=== PATIENT | male | born 1940 | race Caucasian/White ===

== ENCOUNTER 2019-09-04 15:44 | Inpatient (IN) ==
[2019-09-04] MEDS ORDERED: Dextrose Gel 15 GM/37.5 ML TUBE PO PRN ×2 (19:21)
[2019-09-04] MEDS ORDERED: *HR* Dextrose 50 % in Water (Syg) 50 ML SYRINGE IVP PRN (19:21)
[2019-09-04] MEDS ORDERED: D5% in Water 1,000 ML IVC PRN (19:21)
[2019-09-04] MEDS ORDERED: NON-FORMULARY MEDICATION 1 EACH EACH (Omega-3/Dha/Epa/Fish Oil [Fish Oil 1,000 Mg Softgel] PO SCH (21:00)
[2019-09-04] MEDS ORDERED: Ipratropium/Albuterol Neb 3 ML IH PRN (21:15)
[2019-09-04] MEDS: Insulin DETEMIR 100 UNIT/ML per UNIT SQ SCH (21:52)
[2019-09-04] MEDS: Insulin LISPRO 300 UNITS/3 ML VIAL SQ SCH (21:53)
[2019-09-04] MEDS: Folic Acid 1 MG TABLET PO SCH (21:53)
[2019-09-04] MEDS: Apixaban 5 MG TABLET PO SCH (21:54)
[2019-09-04] MEDS: Magnesium Oxide 400 MG TABLET PO SCH (21:54)
[2019-09-04] MEDS: Ranolazine 500 MG TAB.ER.12H PO SCH (21:54)
[2019-09-04] MEDS: Budesonide/Formoterol 80/4.5 1 PUFF INH IH SCH (22:12)
[2019-09-05] MEDS: Insulin LISPRO 300 UNITS/3 ML VIAL SQ SCH ×4 (08:38→20:00)
[2019-09-05] MEDS: BuPROPion XL (24 HR) 150 MG TABLET PO SCH (08:40)
[2019-09-05] MEDS: Ranolazine 500 MG TAB.ER.12H PO SCH ×2 (08:40→20:01)
[2019-09-05] MEDS: Torsemide 20 MG TABLET PO SCH (08:40)
[2019-09-05] MEDS: Cholecalciferol (D-3) 1,000 UNIT (25MCG) TABLET PO SCH (08:41)
[2019-09-05] MEDS: Apixaban 5 MG TABLET PO SCH ×2 (08:41→20:02)
[2019-09-05] MEDS: Loratadine 10 MG TABLET PO SCH (08:41)
[2019-09-05] MEDS: Cyanocobalamin (B-12) 1,000 MCG TABLET PO SCH (08:41)
[2019-09-05] MEDS: Magnesium Oxide 400 MG TABLET PO SCH ×2 (08:41→20:01)
[2019-09-05] MEDS: Budesonide/Formoterol 80/4.5 1 PUFF INH IH SCH ×2 (10:10→22:18)
[2019-09-05] MEDS: Tiotropium 18 MCG inhalation IH SCH (10:10)
--- NOTE | 2019-09-05 12:30 | Internal Med History&Physical ---
Date of Encounter: 09/05/19 Time of Encounter: 11:55 Assessment and Plan (1) Pneumonia Current visit: No Status: Acute Blood culture 08/30/2019 showed Micrococcus luteus. Continue Augmentin through 09/09/2019. Lactobacillus will be added. Qualifiers: Pneumonia type: due to unspecified organism Laterality: right Lung location: upper lobe of lung Qualified Code(s): J18.1 - Lobar pneumonia, unspecified organism (2) CKD (chronic kidney disease) stage 3, GFR 30-59 ml/min Current visit: No Status: Chronic Monitor renal indices. Follow-up appointment with statistical clerk advertising as scheduled December 2019. (3) CAD (coronary artery disease), [place] coronary artery Current visit: No Status: Chronic Status post multiple stents. Anticipate additional PCI/stent intervention 09/15/2019 by [facility] cardiology. Continue Lipitor, Plavix, and Eliquis. Qualifiers: Associated angina: with other forms of angina Qualified Code(s): I25.118 - Atherosclerotic heart disease of [place] coronary artery with other forms of angina pectoris (4) Anemia Current visit: No Status: Chronic Anemia testing 08/23/2019 showed iron 31, transferrin saturation 12%, transferrin 192, ferritin 278, B12 631, and folate> 22.3. He states he received 4 parenteral iron treatments during recent [facility] stay. Monitor CBC. 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 Continue Eliquis. Qualifiers: Atrial fibrillation type: paroxysmal Qualified Code(s): I48.0 - Paroxysmal atrial fibrillation (6) Diabetes mellitus Current visit: No Status: Chronic Hemoglobin A1c 7.7% on 07/31/2019. Continue Lantus and Accu-Cheks with SSI. Qualifiers: Diabetes mellitus type: type 2 Diabetes mellitus payroll representative insulin use: with payroll representative use Diabetes mellitus complication status: with kidney complications Diabetes mellitus complication detail: with chronic kidney disease Chronic kidney disease stage: stage 3 (moderate) Qualified Code(s): E11.22 - Type 2 diabetes mellitus with diabetic chronic kidney disease; N18.3 - Chronic kidney disease, stage 3 (moderate); Z79.4 - [facility] (current) use of insulin (7) CHF (congestive heart failure) Current visit: No Status: Chronic Continue Plavix and Demadex. Qualifiers: Heart failure type: diastolic Heart failure chronicity: acute on chronic Qualified Code(s): I50.33 - Acute on chronic diastolic (congestive) heart failure Internal Medicine - H&P: HPI Chief complaint: Pneumonia Admitted From: Hospital to Hospital Transfer Plans for Post Hospital Care: Home History of present illness: Mr. Miller is a 79 year old male who was discharged to [facility] swing bed after a August 30 [facility] stay for pneumonia. He received IV antibiotics and stabilized. He was discharged on oral antibiotics for 5 days. He was ordered therapy for strengthening prior to returning to independent living at home. He smoked from age [age] up to 2 packs per day. He has a diagnosis COPD. He has had pneumonia in the past. He uses supplemental oxygen at home at bedtime and as needed during daytime. He denies evaluation for sleep apnea. Past Med Surg Social Fam HX - Past Medical History Medical history: arthritis, atrial fibrillation, cancer, CHF, COPD, coronary artery disease, diabetes, GERD, hyperlipidemia, hypertension Additional medical history: Melanoma removed from ear Psychiatric history: anxiety, depression - Past Surgical History Surgical History: pacemaker Additional surgical history: 8 cardiac stents. 3 hernia repairs. cancer right ear removal - Social History Smoking Status: Former smoker Smokeless Tobacco Status: No Alcohol use: none Drug use: none - Family History Mother Family Member Ethnicity: Non- Living Status: Hx Family Cardiac Disorders: Yes (Heart disease) Brother Family Member Ethnicity: Non- Living Status: Still Living Hx Family Cardiac Disorders: Yes Hx Family Cancer: Yes (Leukemia) Hx Family Endocrine Disorder: Yes (DM) Sister Family Member Ethnicity: Non- Living Status: Hx Family Cardiac Disorders: Yes (Heart disease) Hx Family Cancer: Yes (Melanoma) Father Family Member Ethnicity: Non- Living Status: Hx Family Cardiac Disorders: Yes (CVA) Hx Family Respiratory Disorders: No Hx Family Cancer: No Hx Family GI Disorders: No Hx Family Endocrine Disorder: Yes (DM) Hx Family Neuromuscular Disorders: No Hx Family Neurologic Disorders: Yes (stroke) Hx Family HEENT Disorders: No Hx Family Autoimmune Disorders: No Internal Medicine - H&P: Meds Atorvastatin Calcium [Lipitor] 20 mg PO 1700 09/04/15 [History] Bupropion HCl [Wellbutrin Xl] 300 mg PO DAILY 09/04/15 [History] Insulin Glargine,Hum.rec.anlog [Lantus Solostar] 65 unit SQ HS 09/04/15 [History] Folic Acid 1 mg PO HS 01/01/16 [History] Clopidogrel [Plavix] 75 mg PO DAILY #30 tablet 07/04/16 [Rx] [place]-3/Dha/Epa/Fish Oil [Fish Oil 1,000 mg Softgel] 1,000 mg PO TID 12/18/16 [History] Magnesium Oxide [Magnesium] 400 mg PO BID 04/30/17 [History] Ferrous Gluconate 324 mg PO DAILY 08/27/17 [History] Loratadine [Allergy Relief] 10 mg PO DAILY 04/29/18 [History] Pantoprazole Sodium 40 mg PO DAILY 04/29/18 [History] Tiotropium [Spiriva] 1 puff IH DAILY 04/29/18 [History] Cholecalciferol (Vitamin D3) [Vitamin D3] 2,000 unit PO DAILY 05/25/18 [History] Docusate [Colace] 100 mg PO DAILY 05/25/18 [History] Sertraline [Zoloft] 200 mg PO DAILY 05/25/18 [History] Tamsulosin [Flomax] 0.4 mg PO DAILY 11/04/18 [History] Cyanocobalamin (Vitamin B-12) [Vitamin B12] 1,000 mcg SL DAILY #30 tablet 01/26/19 [Rx] Fluticasone/Salmeterol [Advair 250-50 Diskus] 2 puff IH BID 05/31/19 [History] Insulin ASPART [Novolog Flexpen] 0 unit SQ TIDAC 05/31/19 [History] Apixaban [Eliquis] 5 mg PO BID tablet 06/04/19 [Rx] Ranolazine [Ranexa] 1,000 mg PO BID 06/05/19 [History] Torsemide [Demadex] 10 mg PO DAILY #30 tablet 06/08/19 [Rx] Potassium Chloride [K-Tab ER] 10 meq PO DAILY 08/30/19 [History] Ipratropium/Albuterol Neb [Duoneb] 3 ml IH Q6HR PRN #120 inh 10/11/19 [Rx] Amoxicillin/Clavulanate [Augmentin] 875 mg PO BIDWM #2 tablet 09/04/19 [Rx] Allergy/AdvReac Type Severity Reaction Status Date / Time codeine Allergy Difficulty Verified 04/04/19 14:29 Breathing Homatropine AdvReac Insomnia Verified 04/04/19 14:29 [From Homatropaire] hydrocodone AdvReac Insomnia Verified 04/04/19 14:29 All Systems PM: A 10-system review of systems was performed and is negative for pertinent findings except as documented above in the HPI. Review of systems: Gen.: He states his weight has been stable in the past year Cardiovascular: He has history of hypertension and known ASHD. Limited echocardiogram 05/30/2019 showed LVEF of 50-55%. The interventricular septum and posterior wall thickness measurements were 1.30 cm each. There was LAE at 4.40 cm. Echocardiogram 11/04/2018 showed LVEF of 30-35% with severe global LV systolic dysfunction and indeterminate diastolic function reported. E/A ratio was 4.2. There was mild mitral regurgitation, mild tricuspid regurgitation, and moderate pulmonary hypertension with estimated RVSP 58 mmHg. LHC 11/07/2018 showed LVEF of 25%. The LMCA was free of disease, LAD with 80% stenosis in mid LAD, 80% stenosis in mid AV circumflex, 80% stenosis in proximal first marginal, and 90% stenosis in proximal RCA. He reports a total of 8 stents had previously been placed. He denies DVT or pulmonary embolus. Respiratory: As per history of present illness GI: He has had cholecystectomy. He denies disorders of his liver or exocrine pancreas. : He has had kidney stones in the past. He was unaware he has chronic kidney disease stage III. He denies being told he has chronic kidney disease. Neurologic: He denies large distribution strokes or seizures. Endocrine: He was diagnosed with DM 2 approximately 2000. He has hyperlipidemia but denies thyroid disease Hematology/oncology: He denies internal malignancies. He had skin cancer removed from his right ear in the past. He has had anemia with history of iron deficiency and reports receiving parenteral iron therapy during his recent [facility] stay. He has been diagnosed with Matthews's esophagus. Psychiatric: He has a diagnosis of depression but denies anxiety or other mental health issues [place] skeletal: He has DJD but denies gout - Constitutional Vitals: Temp Pulse Resp BP Pulse Ox 98 F 81 15 121/66 92 09/05/19 06:45 09/05/19 06:45 09/05/19 10:10 09/05/19 06:45 09/05/19 10:10 Exam: Neural: He is a well developed well-nourished male resting comfortably in a chair at bedside who appears in no acute distress HEENT: Head is atraumatic and normal cephalic. Eyes: EOMI. There is no scleral icterus. Mouth: Mucosa is moist. Neck: Supple and nontender. There is no thyromegaly or adenopathy noted. Heart: Regular without murmurs gallops or ectopics. Lungs: No wheezes or crackles or egophony are heard Abdomen: Nontender to palpation. Exam is limited because he is in the seated position. Extremities: There is no cyanosis or clubbing noted. There is trace pitting edema of the mid lower anterior shins. Neurologic: Mental status: He is talkative and a good historian. Cranial nerves: Smile is symmetric. Forehead wrinkles bilaterally. Tongue protrudes midline. EOMI. Motor: There is no pronator drift. Cerebellar: Finger to nose is intact bilaterally. Skin: Warm and dry
[2019-09-05] MEDS ORDERED: *HR* Dextrose 50 % in Water (Vial) 50 ML VIAL IVP PRN (12:45)
[2019-09-05] MEDS: Insulin DETEMIR 100 UNIT/ML per UNIT SQ SCH (20:01)
[2019-09-05] MEDS: Lactobacillus 1 EACH CAP.SPRINK PO SCH (20:02)
[2019-09-05] MEDS: Folic Acid 1 MG TABLET PO SCH (20:02)
[2019-09-06] MEDS: Insulin LISPRO 300 UNITS/3 ML VIAL SQ SCH ×4 (07:47→20:06)
[2019-09-06] MEDS: Torsemide 20 MG TABLET PO SCH (09:55)
[2019-09-06] MEDS: BuPROPion XL (24 HR) 150 MG TABLET PO SCH (09:55)
[2019-09-06] MEDS: Cyanocobalamin (B-12) 1,000 MCG TABLET PO SCH (09:55)
[2019-09-06] MEDS: Ranolazine 500 MG TAB.ER.12H PO SCH ×2 (09:55→20:08)
[2019-09-06] MEDS: Cholecalciferol (D-3) 1,000 UNIT (25MCG) TABLET PO SCH (09:55)
[2019-09-06] MEDS: Lactobacillus 1 EACH CAP.SPRINK PO SCH ×2 (09:56→20:08)
[2019-09-06] MEDS: Loratadine 10 MG TABLET PO SCH (09:56)
[2019-09-06] MEDS: Apixaban 5 MG TABLET PO SCH ×2 (09:56→20:08)
[2019-09-06] MEDS: Magnesium Oxide 400 MG TABLET PO SCH ×2 (09:56→20:08)
[2019-09-06] MEDS: Budesonide/Formoterol 80/4.5 1 PUFF INH IH SCH ×2 (10:06→21:02)
[2019-09-06] MEDS: Tiotropium 18 MCG inhalation IH SCH (10:07)
[2019-09-06] MEDS: Insulin DETEMIR 100 UNIT/ML per UNIT SQ SCH (20:08)
[2019-09-06] MEDS: Folic Acid 1 MG TABLET PO SCH (20:08)
[2019-09-07 07:22] LABS: Basophils % 0.5 %; Eosinophils # 0.1 K/mcL (0.0-0.6); Eosinophils % 1.6 %; Hematocrit 29.7 % (37.5-50.1); Immature Granulocytes % 0.4 % (0-4); Lymphocytes # 0.8 K/mcL (0.6-4.6); Lymphocytes % 9.8 %; Mean Corpuscular HGB Conc 30.3 g/dL (31.6-35.5); Mean Corpuscular Hemoglobin 23.5 pg (28.0-33.3); Mean Corpuscular Volume 77.5 fL (83.0-100.0); Mean Platelet Volume 9.4 fL (9.4-12.4); Monocytes # 0.5 K/mcL (0.0-1.3); Monocytes % 5.6 %; Neutrophils # 6.6 K/mcL (1.6-8.9); Platelet Count 240 K/mcL (140-400); Red Blood Count 3.83 M/mcL (4.19-5.50); Red Cell Distribution Width 20.2 % (11.5-14.5); Segmented Neutrophils % 82.1 %
[2019-09-07 07:43] LABS: BUN/Creatinine Ratio 16 (6-26); Blood Urea Nitrogen 21 mg/dL (8-23); Calcium 8.8 mg/dL (8.6-10.3); Carbon Dioxide 30 mEq/L (23-29); Chloride 100 mEq/L (98-107); Glucose 173 mg/dL (70-105); Osmolality,Calculated 287 (280-300); Potassium 4.3 mEq/L (3.5-5.1); Sodium 135 mEq/L (136-145); eGFR For African Americans > 60 (> 60); eGFR For Non-African Americans 54 (> 60)
[2019-09-07] MEDS: Budesonide/Formoterol 80/4.5 1 PUFF INH IH SCH ×2 (08:03→21:03)
[2019-09-07] MEDS: Tiotropium 18 MCG inhalation IH SCH (08:04)
[2019-09-07] MEDS: Insulin LISPRO 300 UNITS/3 ML VIAL SQ SCH ×4 (08:35→20:10)
[2019-09-07] MEDS: Loratadine 10 MG TABLET PO SCH (08:36)
[2019-09-07] MEDS: Torsemide 20 MG TABLET PO SCH (08:36)
[2019-09-07] MEDS: Ranolazine 500 MG TAB.ER.12H PO SCH ×2 (08:36→20:16)
[2019-09-07] MEDS: BuPROPion XL (24 HR) 150 MG TABLET PO SCH (08:36)
[2019-09-07] MEDS: Apixaban 5 MG TABLET PO SCH ×2 (08:38→20:16)
[2019-09-07] MEDS: Lactobacillus 1 EACH CAP.SPRINK PO SCH ×2 (09:46→20:16)
[2019-09-07] MEDS: Cholecalciferol (D-3) 1,000 UNIT (25MCG) TABLET PO SCH (09:46)
[2019-09-07] MEDS: Magnesium Oxide 400 MG TABLET PO SCH ×2 (09:46→20:16)
[2019-09-07] MEDS: Cyanocobalamin (B-12) 1,000 MCG TABLET PO SCH (09:46)
--- NOTE | 2019-09-07 11:34 | Internal Med Progress Note ---
Date of Encounter: 09/07/19 Time of Encounter: 11:25 - Assessment and plan (1) Pneumonia Current Visit: No Status: Acute Assessment and plan: September 07. Blood culture 08/30/2019 showed Micrococcus luteus. Continue Augmentin with lactobacillus through 09/09/2019. Qualifiers: Pneumonia type: due to unspecified organism Laterality: right Lung location: upper lobe of lung Qualified Code(s): J18.1 - Lobar pneumonia, u nspecified organism (2) CKD (chronic kidney disease) stage 3, GFR 30-59 ml/min Current Visit: No Status: Chronic Assessment and plan: September 07. Monitor renal indices. Follow-up appointment with senior database engineer scheduled December 2019. (3) CAD (coronary artery disease), [place] coronary artery Current Visit: No Status: Chronic Assessment and plan: September 07. Status post multiple stents. Continue Lipitor, Plavix, and Eliquis. Anticipate PCI/stent 09/15/2019 at [facility] Qualifiers: Associated angina: with other forms of angina Qualified Code(s): I25.118 - Atherosclerotic heart disease of [place] coronary artery with other forms of angina pectoris (4) Anemia Current Visit: No Status: Chronic Assessment and plan: September 07. Anemia testing 08/23/2019 showed iron 31, transferrin saturation 12%, transferrin 192, ferritin 278, B12 631, and folate > 22.3. He states he received 4 parenteral iron treatments during recent [facility] stay. Hemoglobin furt her decreased today at 9.0. Recheck iron studies in a.m. Qualifiers: Anemia type: iron deficiency Iron deficiency anemia type: unspecified iron deficiency Qualified Code(s): D50.9 - Iron deficiency anemia, unspecified (5) Atrial fibrillation Current Visit: No Status: Chronic Assessment and plan: September 07. 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 Continue Eliquis. Qualifiers: Atrial fibrillation type: paroxysmal Qualified Code(s): I48.0 - Paroxysmal atrial fibrillation (6) Diabetes mellitus Current Visit: No Status: Chronic Assessment and plan: September 07. Hemoglobin A1c 7.7% on 07/31/2019. Reduce Lantus to avoid hypoglycemia. Continue Accu-Cheks with SSI. Qualifiers: Diabetes mellitus type: type 2 Diabetes mellitus retirement insulin use: with buttermilk drier operator use Diabetes mellitus complication status: with kidney complications Diabetes mellitus complication detail: with chronic kidney disease Chronic kidney disease stage: stage 3 (moderate) Qualified Code(s): E11.22 - Type 2 diabetes mellitus with diabetic chronic kidney disease; N18.3 - Chronic kidney disease, stage 3 (moderate); Z79.4 - [facility] (current) use of insulin (7) CHF (congestive heart failure) Current Visit: No Status: Chronic Assessment and plan: September 07. Limited echocardiogram 05/30/2019 showed LVEF of 50-55%. Continue Plavix and Demadex Qualifiers: Heart failure type: diastolic Heart failure chronicity: acute on chronic Qualified Code(s): I50.33 - Acute on chronic diastolic (congestive) heart failure - Subjective Interval history: September 07. He has no new complaints. He reports he had hypoglycemia episode approximately 0230 today. - Constitutional Vitals: Temp Pulse Resp BP Pulse Ox 97.7 F 65 16 134/55 98 09/07/19 06:57 09/07/19 06:57 09/07/19 08:05 09/07/19 06:57 09/07/19 08:05 Exam: He is resting comfortably on the side of bed and appears in no acute distress. His affect is overall cheerful. I reviewed his medications and lab results. Internal Medicine: Result - Labs CBC & Chem 7: 09/07/19 06:42 09/07/19 06:42 Labs: Short CBC 09/07/19 Range/Units 06:42 WBC 8.0 (4.3-11.1) K/mcL Hgb 9.0 L (12.9-16.9) g/dL Hct 29.7 L (37.5-50.1) % Plt Count 240 (140-400) K/mcL Neutrophils # 6.6 (1.6-8.9) K/mcL BMP 09/07/19 06:42 Sodium 135 L Potassium 4.3 Chloride 100 Carbon Dioxide 30 H BUN 21 Creatinine 1.28 Glucose 173 H Calcium 8.8 Consult Discharge Plan - Plan Referrals: Markus Herring DO [Primary Care Provider] - 1 week
[2019-09-07] MEDS: Insulin DETEMIR 100 UNIT/ML X5UNITS SQ SCH (20:16)
[2019-09-07] MEDS: Folic Acid 1 MG TABLET PO SCH (20:16)
[2019-09-08 06:37] LABS: Basophils % 0.5 %; Eosinophils # 0.1 K/mcL (0.0-0.6); Eosinophils % 1.8 %; Hematocrit 29.3 % (37.5-50.1); Hemoglobin 8.8 g/dL (12.9-16.9); Immature Granulocytes % 0.4 % (0-4); Lymphocytes # 0.9 K/mcL (0.6-4.6); Lymphocytes % 11.7 %; Mean Corpuscular Hemoglobin 23.3 pg (28.0-33.3); Mean Corpuscular Volume 77.5 fL (83.0-100.0); Mean Platelet Volume 9.6 fL (9.4-12.4); Monocytes # 0.4 K/mcL (0.0-1.3); Monocytes % 5.5 %; Neutrophils # 6.4 K/mcL (1.6-8.9); Platelet Count 244 K/mcL (140-400); Red Blood Count 3.78 M/mcL (4.19-5.50); Red Cell Distribution Width 20.3 % (11.5-14.5); Segmented Neutrophils % 80.1 %; White Blood Count 7.9 K/mcL (4.3-11.1)
[2019-09-08 09:09] LABS: % Iron Saturation 18 % (20-55); Ferritin 720 ng/mL (20-250); Iron 37 mcg/dL (65-175); Transferrin 151 mg/dL (203-362)
[2019-09-08 09:12] LABS: Folate > 22.3 ng/mL (3.0-16.0); Vitamin B12 488 pg/mL (250-1100)
[2019-09-08] MEDS: Cholecalciferol (D-3) 1,000 UNIT (25MCG) TABLET PO SCH (09:14)
[2019-09-08] MEDS: Ranolazine 500 MG TAB.ER.12H PO SCH ×2 (09:14→20:22)
[2019-09-08] MEDS: BuPROPion XL (24 HR) 150 MG TABLET PO SCH (09:14)
[2019-09-08] MEDS: Lactobacillus 1 EACH CAP.SPRINK PO SCH ×2 (09:15→20:23)
[2019-09-08] MEDS: Cyanocobalamin (B-12) 1,000 MCG TABLET PO SCH (09:15)
[2019-09-08] MEDS: Apixaban 5 MG TABLET PO SCH ×2 (09:15→20:23)
[2019-09-08] MEDS: Torsemide 20 MG TABLET PO SCH (09:15)
[2019-09-08] MEDS: Loratadine 10 MG TABLET PO SCH (09:15)
[2019-09-08] MEDS: Magnesium Oxide 400 MG TABLET PO SCH ×2 (09:15→20:23)
[2019-09-08] MEDS: Insulin LISPRO 300 UNITS/3 ML VIAL SQ SCH ×4 (09:18→20:10)
[2019-09-08] MEDS: Tiotropium 18 MCG inhalation IH SCH (10:09)
[2019-09-08] MEDS: Budesonide/Formoterol 80/4.5 1 PUFF INH IH SCH ×2 (10:10→22:36)
--- NOTE | 2019-09-08 11:29 | Internal Med Progress Note ---
Date of Encounter: 09/08/19 Time of Encounter: 11:22 - Assessment and plan (1) Pneumonia Current Visit: No Status: Acute Assessment and plan: September 07. Blood culture 08/30/2019 showed Micrococcus luteus. Continue Augmentin with lactobacillus through 09/09/2019. Qualifiers: Pneumonia type: due to unspecified organism Laterality: right Lung location: upper lobe of lung Qualified Code(s): J18.1 - Lobar pneumonia, u nspecified organism (2) CKD (chronic kidney disease) stage 3, GFR 30-59 ml/min Current Visit: No Status: Chronic Assessment and plan: September 07. Monitor renal indices. Follow-up appointment with whittling room operator scheduled December 2019. (3) CAD (coronary artery disease), [place] coronary artery Current Visit: No Status: Chronic Assessment and plan: September 07. Status post multiple stents. Continue Lipitor, Plavix, and Eliquis. Anticipate PCI/stent 09/15/2019 at [facility]. Qualifiers: Associated angina: with other forms of angina Qualified Code(s): I25.118 - Atherosclerotic heart disease of [place] coronary artery with other forms of angina pectoris (4) Anemia Current Visit: No Status: Chronic Assessment and plan: September 07. Anemia testing 08/23/2019 showed iron 31, transferrin saturation 12%, transferrin 192, ferritin 278, B12 631, and folate > 22.3. He states he received 4 parenteral iron treatments during recent [facility] stay. Hemoglobin furt her decreased today at 9.0. Recheck iron studies in a.m. September 08. Hemoglobin slightly decreased further today at 8.8. Anemia testing showed iron 37, transferrin saturation 18%, transferrin 151, ferritin 720, B12 488, and folate> 22.3. PCP can continue to monitor labs after discharge. Qualifiers: Anemia type: iron deficiency Iron deficiency anemia type: unspecified iron deficiency Qualified Code(s): D50.9 - Iron deficiency anemia, unspecified (5) Atrial fibrillation Current Visit: No Status: Chronic Assessment and plan: September 07. 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 Continue Eliquis. Qualifiers: Atrial fibrillation type: paroxysmal Qualified Code(s): I48.0 - Paroxysmal atrial fibrillation (6) Diabetes mellitus Current Visit: No Status: Chronic Assessment and plan: September 07. Hemoglobin A1c 7.7% on 07/31/2019. Reduce Lantus to avoid hypoglycemia. Continue Accu-Cheks with SSI. September 08. Blood sugars show rise but still acceptable. Continue present Rx Qualifiers: Diabetes mellitus type: type 2 Diabetes mellitus intermediate insulin use: with intermediate use Diabetes mellitus complication status: with kidney complications Diabetes mellitus complication detail: with chronic kidney disease Chronic kidney disease stage: stage 3 (moderate) Qualified Code(s): E11.22 - Type 2 diabetes mellitus with diabetic chronic kidney disease; N18.3 - Chronic kidney disease, stage 3 (moderate); Z79.4 - intermediate (current) use of insulin (7) CHF (congestive heart failure) Current Visit: No Status: Chronic Assessment and plan: September 07. Limited echocardiogram 05/30/2019 showed LVEF of 50-55%. Continue Plavix and Demadex Qualifiers: Heart failure type: diastolic Heart failure chronicity: acute on chronic Qualified Code(s): I50.33 - Acute on chronic diastolic (congestive) heart failure (8) COPD (chronic obstructive pulmonary disease) Current Visit: Yes Status: Chronic Assessment and plan: September 08. Room air oximetry at rest decreased to 86%. He became more dyspneic and required immediate reinstitution of oxygen for comfort and safety. He will be prescribed oxygen 2 L/m by nasal cannula 14/06 with portable gas and concentrator. Qualifying diagnosis of COPD with hypoxemia not remedied by use of bronchodilators. Qualifiers: COPD type: unspecified COPD Qualified Code(s): J44.9 - Chronic obstructive pulmonary disease, unspecified - Subjective Interval history: September 07. He has no new complaints. He reports he had hypoglycemia episode a pproximately 0230 today. September 08. He has no new complaints. - Constitutional Vitals: Temp Pulse Resp BP Pulse Ox 98.3 F 65 16 112/60 71 09/08/19 07:30 09/08/19 07:30 09/08/19 10:10 09/08/19 07:30 09/08/19 10:14 Exam: He is resting comfortably in bed and appears in no acute distress. His affect is cheerful. He is wearing oxygen by nasal cannula. I reviewed his medications, labs, and 6 minute walk results. Internal Medicine: Result - Labs CBC & Chem 7: 09/08/19 05:30 09/07/19 06:42 Labs: Short CBC 09/08/19 Range/Units 05:30 WBC 7.9 (4.3-11.1) K/mcL Hgb 8.8 L (12.9-16.9) g/dL Hct 29.3 L (37.5-50.1) % Plt Count 244 (140-400) K/mcL Neutrophils # 6.4 (1.6-8.9) K/mcL Consult Discharge Plan - Plan Referrals: Markus Herring DO [Primary Care Provider] - 1 week
[2019-09-08] MEDS: Insulin DETEMIR 100 UNIT/ML X5UNITS SQ SCH (20:24)
[2019-09-08] MEDS: Folic Acid 1 MG TABLET PO SCH (20:24)
[2019-09-09 06:59] VITALS: BP 121/70
[2019-09-09] MEDS: Insulin LISPRO 300 UNITS/3 ML VIAL SQ SCH ×2 (08:47→12:51)
[2019-09-09] MEDS: Magnesium Oxide 400 MG TABLET PO SCH (08:48)
[2019-09-09] MEDS: Lactobacillus 1 EACH CAP.SPRINK PO SCH (08:48)
[2019-09-09] MEDS: Torsemide 20 MG TABLET PO SCH (08:48)
[2019-09-09] MEDS: Cyanocobalamin (B-12) 1,000 MCG TABLET PO SCH (08:49)
[2019-09-09] MEDS: BuPROPion XL (24 HR) 150 MG TABLET PO SCH (08:49)
[2019-09-09] MEDS: Ranolazine 500 MG TAB.ER.12H PO SCH (08:49)
[2019-09-09] MEDS: Cholecalciferol (D-3) 1,000 UNIT (25MCG) TABLET PO SCH (08:49)
[2019-09-09] MEDS: Loratadine 10 MG TABLET PO SCH (08:49)
[2019-09-09] MEDS: Apixaban 5 MG TABLET PO SCH (08:50)
--- NOTE | 2019-09-09 09:17 | Discharge Summary ---
Date of Encounter: 09/09/19 Time of Encounter: 09:07 - Discharge Diagnosis (1) Pneumonia Priority: Primary Status: Resolved Qualifiers: Pneumonia type: due to unspecified organism Laterality: right Lung location: upper lobe of lung Qualified Code(s): J18.1 - Lobar pneumonia, unspecified organism (2) CKD (chronic kidney disease) stage 3, GFR 30-59 ml/min Priority: Secondary Status: Chronic (3) CAD (coronary artery disease), [place] coronary artery Priority: Secondary Status: Chronic Qualifiers: Associated angina: with other forms of angina Qualified Code(s): I25.118 - Atherosclerotic heart disease of [place] coronary artery with other forms of angina pectoris (4) Anemia Priority: Secondary Status: Chronic Qualifiers: Anemia type: iron deficiency Iron deficiency anemia type: unspecified iron deficiency Qualified Code(s): D50.9 - Iron deficiency anemia, unspecified (5) Atrial fibrillation Priority: Secondary Status: Chronic Qualifiers: Atrial fibrillation type: paroxysmal Qualified Code(s): I48.0 - Paroxysmal atrial fibrillation (6) Diabetes mellitus Priority: Secondary Status: Chronic Qualifiers: Diabetes mellitus type: type 2 Diabetes mellitus director long term care insulin use: with retirement use Diabetes mellitus complication status: with kidney complications Diabetes mellitus complication detail: with chronic kidney disease Chronic kidney disease stage: stage 3 (moderate) Qualified Code(s): E11.22 - Type 2 diabetes mellitus with diabetic chronic kidney disease; N18.3 - Chronic kidney disease, stage 3 (moderate); Z79.4 - terminal press operator (current) use of insulin (7) CHF (congestive heart failure) Priority: Secondary Status: Chronic Qualifiers: Heart failure type: diastolic Heart failure chronicity: acute on chronic Qualified Code(s): I50.33 - Acute on chronic diastolic (congestive) heart failure (8) COPD (chronic obstructive pulmonary disease) Priority: Secondary Status: Chronic Qualifiers: COPD type: unspecified COPD Qualified Code(s): J44.9 - Chronic obstructive pulmonary disease, unspecified Hospital course: Mr. Miller is a 79 year old male who was discharged to [facility] swing bed after a August 30 [facility] stay for pneumonia. He received IV antibiotics and stabilized. He was discharged on oral antibiotics for 5 days. He was ordered therapy for strengthening prior to returning to independent living at home. Initial orders were written by the discharging physicians at [facility]. I saw him on September 05 and performed the swing bed history and physical. He continued Augmentin with lactobacillus through September 09. He remained afebrile and had no respiratory complaints. Room air oximetry showed saturation decreased to 86% at rest on day prior to discharge. He was prescribed home oxygen at 2 L/m by nasal cannula. Her graft he had physical therapy and occupational therapy evaluations with ongoing intervention. He made satisfactory progress. Rollator walker was prescribed at discharge for ambulatory safety and assistance. Hemoglobin decreased gradually during his hospital stay to 8.8 on 09/08/2019 compared to 9.9 on 08/30/2019. Anemia testing showed iron 37, transferrin satu ration 18%, transferrin 151, ferritin 720, B12 488, and folate> 22.3. He reported having a colonoscopy in the past 1-2 years. His PCP can monitor labs and order further testing/refer as indicated. Eliquis and Plavix will be continued. On September 09 arrangements were complete for him to be discharged home. He will follow with his PCP Dr. Markus Herring within 1 week. Home health services will b e ordered. - Time Spent with Patient Total time spent providing and/or coordinating discharge services: - Discharge Medications Prescriptions: Continued Insulin Glargine,Hum.rec.anlog [Lantus Solostar] 65 unit SQ HS Bupropion HCl [Wellbutrin Xl] 300 mg PO DAILY Atorvastatin Calcium [Lipitor] 20 mg PO 1700 Folic Acid 1 mg PO HS Clopidogrel [Plavix] 75 mg PO DAILY #30 tablet [place]-3/Dha/Epa/Fish Oil [Fish Oil 1,000 mg Softgel] 1,000 mg PO TID Magnesium Oxide [Magnesium] 400 mg PO BID Ferrous Gluconate 324 mg PO DAILY Pantoprazole Sodium 40 mg PO DAILY Tiotropium [Spiriva] 1 puff IH DAILY Cholecalciferol (Vitamin D3) [Vitamin D3] 2,000 unit PO DAILY Sertraline [Zoloft] 200 mg PO DAILY Docusate [Colace] 100 mg PO DAILY Tamsulosin [Flomax] 0.4 mg PO DAILY Cyanocobalamin (Vitamin B-12) [Vitamin B12] 1,000 mcg SL DAILY #30 tablet Fluticasone/Salmeterol [Advair 250-50 Diskus] 2 puff IH BID Insulin ASPART [Novolog Flexpen] 0 unit SQ TIDAC Apixaban [Eliquis] 5 mg PO BID tablet Ranolazine [Ranexa] 1,000 mg PO BID Torsemide [Demadex] 10 mg PO DAILY #30 tablet Potassium Chloride [K-Tab ER] 10 meq PO DAILY Ipratropium/Albuterol Neb [Duoneb] 3 ml IH Q6HR PRN #120 inh PRN Reason: Shortness Of Breath Changed Loratadine [Allergy Relief] 10 mg PO DAILY PRN #0 PRN Reason: Allergy Symptoms Discontinued Amoxicillin/Clavulanate [Augmentin] 875 mg PO BIDWM #2 tablet Home Medications: Atorvastatin Calcium [Lipitor] 20 mg PO 1700 09/04/15 [History] Bupropion HCl [Wellbutrin Xl] 300 mg PO DAILY 09/04/15 [History] Insulin Glargine,Hum.rec.anlog [Lantus Solostar] 65 unit SQ HS 09/04/15 [History] Folic Acid 1 mg PO HS 01/01/16 [History] Clopidogrel [Plavix] 75 mg PO DAILY #30 tablet 07/04/16 [Rx] [place]-3/Dha/Epa/Fish Oil [Fish Oil 1,000 mg Softgel] 1,000 mg PO TID 12/18/16 [History] Magnesium Oxide [Magnesium] 400 mg PO BID 04/30/17 [History] Ferrous Gluconate 324 mg PO DAILY 08/27/17 [History] Pantoprazole Sodium 40 mg PO DAILY 04/29/18 [History] Tiotropium [Spiriva] 1 puff IH DAILY 04/29/18 [History] Cholecalciferol (Vitamin D3) [Vitamin D3] 2,000 unit PO DAILY 05/25/18 [History] Docusate [Colace] 100 mg PO DAILY 05/25/18 [History] Sertraline [Zoloft] 200 mg PO DAILY 05/25/18 [History] Tamsulosin [Flomax] 0.4 mg PO DAILY 11/04/18 [History] Cyanocobalamin (Vitamin B-12) [Vitamin B12] 1,000 mcg SL DAILY #30 tablet 01/26/19 [Rx] Fluticasone/Salmeterol [Advair 250-50 Diskus] 2 puff IH BID 05/31/19 [History] Insulin ASPART [Novolog Flexpen] 0 unit SQ TIDAC 05/31/19 [History] Apixaban [Eliquis] 5 mg PO BID tablet 06/04/19 [Rx] Ranolazine [Ranexa] 1,000 mg PO BID 06/05/19 [History] Torsemide [Demadex] 10 mg PO DAILY #30 tablet 06/08/19 [Rx] Potassium Chloride [K-Tab ER] 10 meq PO DAILY 08/30/19 [History] Ipratropium/Albuterol Neb [Duoneb] 3 ml IH Q6HR PRN #120 inh 09/01/19 [Rx] Loratadine [Allergy Relief] 10 mg PO DAILY PRN #0 09/09/19 [Rx] Allergies/Adverse Reactions: Allergy/AdvReac Type Severity Reaction Status Date / Time codeine Allergy Difficulty Verified 04/04/19 14:29 Breathing Homatropine AdvReac Insomnia Verified 04/04/19 14:29 [From Homatropaire] hydrocodone AdvReac Insomnia Verified 04/04/19 14:29 Date of admission: 09/04/19 18:22 Primary care physician: Markus Herring DO Consults: 09/04/19 18:45 Consult to Occupational Therapy [CONS] Routine Comment: Eval and treat Reason for Consult: Weakness after PNE Does patient have active BEDREST order?: No Is patient medically & hemodynamically stable?: Yes Consult to Physical Therapy [CONS] Routine Comment: Eval and treat Reason for Consult: Weakness after PNE Does patient have active BEDREST order?: No Is patient medically & hemodynamically stable?: Yes - Constitutional Vitals: Temp Pulse Resp BP Pulse Ox 98.2 F 76 22 121/70 91 09/09/19 06:51 09/09/19 06:51 09/09/19 06:51 09/09/19 06:51 09/09/19 06:51 - Patient Status Disposition: Home Health Service - Discharge Instructions Follow Up With: Markus Herring DO [Primary Care Provider] - 1 week - Diet and Activity Activity: as per physical therapy, wear oxygen at all times Diet: diabetic diet
--- NOTE | 2019-09-09 09:30 | Physician Discharge Referral ---
Home Health/Hosp Referral Info Transfer to: Home Health Attending Provider: [facility] Provider in Charge Post Discharge: PCP (Markus Herring DO) - Diagnosis (1) Pneumonia Priority: Primary Status: Resolved (2) CKD (chronic kidney disease) stage 3, GFR 30-59 ml/min Priority: Secondary Status: Chronic (3) CAD (coronary artery disease), [place] coronary artery Priority: Secondary Status: Chronic (4) Anemia Priority: Secondary Status: Chronic (5) Atrial fibrillation Priority: Secondary Status: Chronic (6) Diabetes mellitus Priority: Secondary Status: Chronic (7) CHF (congestive heart failure) Priority: Secondary Status: Chronic (8) COPD (chronic obstructive pulmonary disease) Priority: Secondary Status: Chronic - Respiratory Orders Oxygen / L per min (2 L/m by nasal cannula 14/06) Smoking Cessation: Smoking cessation has been advised. For more information, call the [place] Tobacco Quit Line at 5-275-TUWY-NOW. - Diet/Nutrition Diet/Nutrition Orders: No Concentrated Sweets - Activity Activity Orders: Walker - Services Needed Following services are medically necessary services: Nursing, Home Health Aide, Physical Therapy, Occupational Therapy - Transfer Medications Home Medications: Atorvastatin Calcium [Lipitor] 20 mg PO 1700 09/04/15 [History] Bupropion HCl [Wellbutrin Xl] 300 mg PO DAILY 09/04/15 [History] Insulin Glargine,Hum.rec.anlog [Lantus Solostar] 65 unit SQ HS 09/04/15 [History] Folic Acid 1 mg PO HS 01/01/16 [History] Clopidogrel [Plavix] 75 mg PO DAILY #30 tablet 07/04/16 [Rx] [place]-3/Dha/Epa/Fish Oil [Fish Oil 1,000 mg Softgel] 1,000 mg PO TID 12/18/16 [History] Magnesium Oxide [Magnesium] 400 mg PO BID 04/30/17 [History] Ferrous Gluconate 324 mg PO DAILY 08/27/17 [History] Pantoprazole Sodium 40 mg PO DAILY 04/29/18 [History] Tiotropium [Spiriva] 1 puff IH DAILY 04/29/18 [History] Cholecalciferol (Vitamin D3) [Vitamin D3] 2,000 unit PO DAILY 05/25/18 [History] Docusate [Colace] 100 mg PO DAILY 05/25/18 [History] Sertraline [Zoloft] 200 mg PO DAILY 05/25/18 [History] Tamsulosin [Flomax] 0.4 mg PO DAILY 11/04/18 [History] Cyanocobalamin (Vitamin B-12) [Vitamin B12] 1,000 mcg SL DAILY #30 tablet 01/26/19 [Rx] Fluticasone/Salmeterol [Advair 250-50 Diskus] 2 puff IH BID 05/31/19 [History] Insulin ASPART [Novolog Flexpen] 0 unit SQ TIDAC 05/31/19 [History] Apixaban [Eliquis] 5 mg PO BID tablet 06/04/19 [Rx] Ranolazine [Ranexa] 1,000 mg PO BID 06/05/19 [History] Torsemide [Demadex] 10 mg PO DAILY #30 tablet 06/08/19 [Rx] Potassium Chloride [K-Tab ER] 10 meq PO DAILY 08/30/19 [History] Ipratropium/Albuterol Neb [Duoneb] 3 ml IH Q6HR PRN #120 inh 09/01/19 [Rx] Loratadine [Allergy Relief] 10 mg PO DAILY PRN #0 09/09/19 [Rx] Allergies/Adverse Reactions: Allergy/AdvReac Type Severity Reaction Status Date / Time codeine Allergy Difficulty Verified 04/04/19 14:29 Breathing Homatropine AdvReac Insomnia Verified 04/04/19 14:29 [From Homatropaire] hydrocodone AdvReac Insomnia Verified 04/04/19 14:29 Certification: Further, I certify that my clinical findings support that this patient is homebo und (i.e. absences from home require considerable and taxing effort and are for medical reasons or anabaptism services or infrequently or short duration when for other reasons) because: Homebound Reason: Leaving home requires considerable and taxing effort due to condition (COPD, O2 dependent, impaired walking ability, CHF.) Attestation: My signature below is to certify that this patient is under my care and that I, or nurse practitioner, or a physician's family service assistant working with me, has a [id number] encounter with this patient.
[2019-09-09] MEDS: Tiotropium 18 MCG inhalation IH SCH (10:36)
[2019-09-09] MEDS: Budesonide/Formoterol 80/4.5 1 PUFF INH IH SCH (10:36)
== END 2019-09-09 11:20 | disposition home health service (06) | DRG 193 ==
LOC: INPPIK 18:22
PROVIDERS: ADMIT Internal Medicine; ATTEND Internal Medicine

== ENCOUNTER 2019-09-23 09:37 | Observation (INO) ==
[2019-09-23] MEDS ORDERED: Ondansetron 4 MG/2 ML VIAL IVP ONE (09:42)
[2019-09-23] MEDS ORDERED: Furosemide 40 MG/4 ML VIAL IVP ONE (09:56)
[2019-09-23 10:02] LABS: Basophils % 0.3 %; Eosinophils # 0.1 K/mcL (0.0-0.6); Eosinophils % 0.6 %; Hematocrit 34.5 % (37.5-50.1); Hemoglobin 10.6 g/dL (12.9-16.9); Immature Granulocytes % 0.4 % (0-4); Lymphocytes # 0.6 K/mcL (0.6-4.6); Lymphocytes % 4.7 %; Mean Corpuscular HGB Conc 30.7 g/dL (31.6-35.5); Mean Corpuscular Hemoglobin 23.9 pg (28.0-33.3); Mean Corpuscular Volume 77.7 fL (83.0-100.0); Monocytes # 0.6 K/mcL (0.0-1.3); Monocytes % 4.6 %; Platelet Count 245 K/mcL (140-400); Red Blood Count 4.44 M/mcL (4.19-5.50); Red Cell Distribution Width 20.8 % (11.5-14.5); Segmented Neutrophils % 89.4 %; White Blood Count 13.4 K/mcL (4.3-11.1)
[2019-09-23 10:08] LABS: INR 1.6; Prothrombin Time 17.8 Seconds (9.4-12.1)
[2019-09-23 10:19] LABS: Alanine Aminotransferase 12 Units/L (7-52); Albumin 4.1 g/dL (3.5-5.7); Albumin/Globulin Ratio 1.3 (1.1-2.2); Alkaline Phosphatase 53 Units/L (34-104); Aspartate Amino Transferase 13 Units/L (13-39); BUN/Creatinine Ratio 21 (6-26); Bilirubin,Total 0.6 mg/dL (0.3-1.0); Blood Urea Nitrogen 28 mg/dL (8-23); Calcium 9.2 mg/dL (8.6-10.3); Carbon Dioxide 27 mEq/L (23-29); Chloride 97 mEq/L (98-107); Globulin 3.1 g/dL (2.4-3.5); Glucose 149 mg/dL (70-105); Magnesium 1.7 mg/dL (1.6-2.6); Osmolality,Calculated 284 (280-300); Potassium 4.9 mEq/L (3.5-5.1); Sodium 133 mEq/L (136-145); Total Protein 7.2 g/dL (6.4-8.9); Troponin I 0.03 ng/mL (< 0.04); eGFR For African Americans > 60 (> 60); eGFR For Non-African Americans 51 (> 60)
[2019-09-23 10:31] LABS: Bilirubin,Urine Negative (Negative); Blood,Urine Negative (Negative); Clarity,Urine Clear (Clear); Color,Urine Yellow (Yellow); Glucose,Urine (UA) Normal (Normal); Ketones,Urine Negative (Negative); Leukocyte Esterase,Urine Negative (Negative); Nitrite,Urine Negative (Negative); Protein,Urine Negative (Neg-Trace); Urobilinogen,Urine Normal (Normal)
[2019-09-23] MEDS ORDERED: Azithromycin 500 MG in 0.9 % Sodium Chloride 250 ML IVPB ONE ×2 (10:34→11:11)
[2019-09-23] MEDS ORDERED: cefTRIAXone 2,000 MG in 0.9 % Sodium Chloride Mini Bag 100 ML IVPB ONE ×2 (10:34→11:11)
[2019-09-23] MEDS ORDERED: Azithromycin 500 MG in 0.9 % Sodium Chloride 250 ML IVPB SCH (11:00)
[2019-09-23] MEDS ORDERED: Ipratropium/Albuterol Neb 3 ML IH PRN (11:11)
[2019-09-23] MEDS ORDERED: Naloxone 0.4 MG/ML INJ IVP PRN (11:11)
[2019-09-23] MEDS ORDERED: Loratadine 10 MG TABLET PO PRN (11:11)
[2019-09-23] MEDS ORDERED: Albuterol 2.5 MG/3 ML NEBULIZER IH PRN (11:11)
[2019-09-23] MEDS ORDERED: MOM Conc 10 ML UD.LIQ PO PRN (11:11)
[2019-09-23] MEDS ORDERED: Ondansetron ODT 4 MG TAB.RAPDIS SL PRN (11:11)
[2019-09-23] MEDS ORDERED: Mag Hydrox/Al Hydrox/Simeth 30 ML UDC PO PRN (11:11)
[2019-09-23] MEDS ORDERED: cefTRIAXone 2,000 MG in Water for inj. (sterile) 20 ML IVP SCH (12:00)
[2019-09-23] MEDS: Insulin LISPRO 300 UNITS/3 ML VIAL SQ SCH ×2 (13:38→17:19)
[2019-09-23] MEDS ORDERED: Folic Acid 1 MG TABLET PO SCH (21:00)
[2019-09-23] MEDS ORDERED: Insulin DETEMIR 100 UNIT/ML X5UNITS SQ SCH (21:00)
[2019-09-23] MEDS: Lactobacillus 1 EACH CAP.SPRINK PO SCH (21:26)
[2019-09-23] MEDS: Ranolazine 500 MG TAB.ER.12H PO SCH (21:26)
[2019-09-23] MEDS: Magnesium Oxide 400 MG TABLET PO SCH (21:27)
[2019-09-23] MEDS: Metoprolol XL (24 HR) Succ 25 MG TAB.ER.24H PO SCH (21:27)
[2019-09-23] MEDS: Apixaban 5 MG TABLET PO SCH (21:27)
[2019-09-24 06:23] LABS: Basophils # 0.1 K/mcL (0.0-0.2); Basophils % 0.5 %; Eosinophils # 0.2 K/mcL (0.0-0.6); Eosinophils % 2.2 %; Hematocrit 32.9 % (37.5-50.1); Immature Granulocytes % 0.4 % (0-4); Lymphocytes # 1.1 K/mcL (0.6-4.6); Lymphocytes % 11.2 %; Mean Corpuscular HGB Conc 30.4 g/dL (31.6-35.5); Mean Corpuscular Hemoglobin 23.8 pg (28.0-33.3); Mean Corpuscular Volume 78.3 fL (83.0-100.0); Mean Platelet Volume 9.5 fL (9.4-12.4); Monocytes # 0.8 K/mcL (0.0-1.3); Monocytes % 7.5 %; Neutrophils # 7.9 K/mcL (1.6-8.9); Platelet Count 247 K/mcL (140-400); Red Cell Distribution Width 21.1 % (11.5-14.5); Segmented Neutrophils % 78.2 %; White Blood Count 10.1 K/mcL (4.3-11.1)
[2019-09-24 06:33] VITALS: BP 116/69
[2019-09-24 06:42] LABS: BUN/Creatinine Ratio 17 (6-26); Blood Urea Nitrogen 23 mg/dL (8-23); Calcium 9.2 mg/dL (8.6-10.3); Carbon Dioxide 31 mEq/L (23-29); Chloride 98 mEq/L (98-107); Glucose 82 mg/dL (70-105); Osmolality,Calculated 283 (280-300); Potassium 4.4 mEq/L (3.5-5.1); Sodium 135 mEq/L (136-145); eGFR For African Americans > 60 (> 60); eGFR For Non-African Americans 50 (> 60)
[2019-09-24] MEDS: Insulin LISPRO 300 UNITS/3 ML VIAL SQ SCH (08:58)
[2019-09-24] MEDS: Lactobacillus 1 EACH CAP.SPRINK PO SCH (08:59)
[2019-09-24] MEDS: Magnesium Oxide 400 MG TABLET PO SCH (08:59)
[2019-09-24] MEDS ORDERED: Torsemide 20 MG TABLET PO SCH (09:00)
[2019-09-24] MEDS ORDERED: Levothyroxine 25 MCG TABLET PO SCH (09:00)
[2019-09-24] MEDS: Ranolazine 500 MG TAB.ER.12H PO SCH (09:00)
[2019-09-24] MEDS: Metoprolol XL (24 HR) Succ 25 MG TAB.ER.24H PO SCH (09:00)
[2019-09-24] MEDS ORDERED: BuPROPion XL (24 HR) 150 MG TABLET PO SCH (09:00)
[2019-09-24] MEDS ORDERED: Cholecalciferol (D-3) 1,000 UNIT (25MCG) TABLET PO SCH (09:00)
[2019-09-24] MEDS: Apixaban 5 MG TABLET PO SCH (09:02)
[2019-09-24] MEDS ORDERED: cefTRIAXone 2,000 MG in 0.9 % Sodium Chloride Mini Bag 100 ML IVPB SCH (11:00)
== END 2019-09-24 11:40 | disposition home or self-care (01) ==
LOC: INPPIK 09:37 → EMEROOPIK 09:37 → INPPIK 11:34
PROVIDERS: ADMIT Internal Medicine; ATTEND Internal Medicine

== ENCOUNTER 2020-01-12 12:23 | Inpatient (IN) ==
[2020-01-12 12:52] LABS: Bilirubin,Urine Negative (Negative); Blood,Urine Negative (Negative); Clarity,Urine Clear (Clear); Color,Urine Yellow (Yellow); Glucose,Urine (UA) Normal (Normal); Ketones,Urine Negative (Negative); Leukocyte Esterase,Urine Negative (Negative); Nitrite,Urine Negative (Negative); Protein,Urine Negative (Neg-Trace); Specific Gravity,Urine 1.025 (1.010-1.025); Urobilinogen,Urine Normal (Normal)
[2020-01-12 13:05] LABS: Basophils % 0.4 %; Eosinophils % 0.4 %; Hematocrit 36.4 % (37.5-50.1); Hemoglobin 11.4 g/dL (12.9-16.9); Immature Granulocytes % 0.3 % (0-4); Lymphocytes # 0.7 K/mcL (0.6-4.6); Lymphocytes % 5.8 %; Mean Corpuscular HGB Conc 31.3 g/dL (31.6-35.5); Mean Corpuscular Hemoglobin 25.2 pg (28.0-33.3); Mean Corpuscular Volume 80.4 fL (83.0-100.0); Mean Platelet Volume 9.1 fL (9.4-12.4); Monocytes # 0.6 K/mcL (0.0-1.3); Monocytes % 5.7 %; Neutrophils # 9.8 K/mcL (1.6-8.9); Platelet Count 164 K/mcL (140-400); Red Blood Count 4.53 M/mcL (4.19-5.50); Segmented Neutrophils % 87.4 %; White Blood Count 11.2 K/mcL (4.3-11.1)
[2020-01-12 13:13] LABS: INR 2.1; Prothrombin Time 24.1 Seconds (9.4-12.1)
[2020-01-12 13:24] LABS: Magnesium 1.9 mg/dL (1.6-2.6)
[2020-01-12 13:25] LABS: Troponin I 0.03 ng/mL (< 0.04)
[2020-01-12 13:41] LABS: Albumin 4.1 g/dL (3.5-5.7); Albumin/Globulin Ratio 1.5 (1.1-2.2); Bilirubin,Total 0.9 mg/dL (0.3-1.0); Calcium 8.7 mg/dL (8.6-10.3); Globulin 2.8 g/dL (2.4-3.5); Potassium 4.9 mEq/L (3.5-5.1); Total Protein 6.9 g/dL (6.4-8.9)
[2020-01-12] MEDS ORDERED: cefTRIAXone 1,000 MG in 0.9 % Sodium Chloride Mini Bag 100 ML IVPB ONE (14:32)
[2020-01-12] MEDS ORDERED: 0.9 % Sodium Chloride 1,000 ML IV ONE (14:32)
[2020-01-12] MEDS ORDERED: Ondansetron 4 MG/2 ML VIAL IVP PRN (17:54)
[2020-01-12] MEDS ORDERED: Naloxone 0.4 MG/ML INJ IVP PRN (17:54)
[2020-01-12] MEDS ORDERED: D5% in Water 1,000 ML IVC PRN (17:56)
[2020-01-12] MEDS ORDERED: Dextrose Gel 15 GM/37.5 ML TUBE PO PRN ×2 (17:56)
[2020-01-12] MEDS ORDERED: *HR* Dextrose 50 % in Water (Syg) 50 ML SYRINGE IVP PRN (17:56)
[2020-01-12] MEDS: 0.9 % Sodium Chloride 1,000 ML IV SCH (18:54)
[2020-01-12] MEDS: Ondansetron ODT 4 MG TAB.RAPDIS SL SCH ×2 (18:54→23:08)
[2020-01-12 20:58] LABS: Estimated Average Glucose 180 mg/dl
[2020-01-12] MEDS ORDERED: Budesonide/Formoterol 80/4.5 1 PUFF INH IH SCH (21:00)
[2020-01-12] MEDS ORDERED: Insulin DETEMIR 100 UNIT/ML per UNIT SQ ONE (21:00)
[2020-01-12] MEDS: Apixaban 5 MG TABLET PO SCH (21:06)
[2020-01-12] MEDS: Folic Acid 1 MG TABLET PO SCH (21:06)
[2020-01-12] MEDS: Ranolazine 500 MG TAB.ER.12H PO SCH (21:06)
[2020-01-12] MEDS: Azithromycin 500 MG in 0.9 % Sodium Chloride 250 ML IVPB SCH (21:08)
[2020-01-12] MEDS: Insulin LISPRO 300 UNITS/3 ML VIAL SQ SCH (21:30)
[2020-01-13] MEDS: Ipratropium/Albuterol Neb 3 ML IH PRN ×2 (02:27→09:51)
[2020-01-13] MEDS: Ondansetron ODT 4 MG TAB.RAPDIS SL SCH ×4 (05:14→22:43)
[2020-01-13] MEDS: Levothyroxine 25 MCG TABLET PO SCH (05:14)
[2020-01-13 06:54] LABS: Hematocrit 34.5 % (37.5-50.1); Hemoglobin 10.8 g/dL (12.9-16.9); Immature Granulocytes % 0.4 % (0-4); Lymphocytes # 0.5 K/mcL (0.6-4.6); Lymphocytes % 7.7 %; Mean Corpuscular HGB Conc 31.3 g/dL (31.6-35.5); Mean Corpuscular Hemoglobin 25.2 pg (28.0-33.3); Mean Corpuscular Volume 80.4 fL (83.0-100.0); Mean Platelet Volume 10.1 fL (9.4-12.4); Monocytes # 0.2 K/mcL (0.0-1.3); Neutrophils # 6.2 K/mcL (1.6-8.9); Platelet Count 170 K/mcL (140-400); Red Blood Count 4.29 M/mcL (4.19-5.50); Segmented Neutrophils % 88.9 %
[2020-01-13 07:15] LABS: BUN/Creatinine Ratio 16 (6-26); Blood Urea Nitrogen 20 mg/dL (8-23); Calcium 8.7 mg/dL (8.6-10.3); Carbon Dioxide 27 mEq/L (23-29); Chloride 100 mEq/L (98-107); Glucose 207 mg/dL (70-105); Osmolality,Calculated 289 (280-300); Sodium 135 mEq/L (136-145); eGFR For African Americans > 60 (> 60); eGFR For Non-African Americans 56 (> 60)
[2020-01-13] MEDS ORDERED: *HR* Dextrose 50 % in Water (Vial) 50 ML VIAL IVP PRN (08:00)
[2020-01-13] MEDS: Insulin LISPRO 300 UNITS/3 ML VIAL SQ SCH ×5 (08:05→20:35)
[2020-01-13] MEDS: Apixaban 5 MG TABLET PO SCH ×2 (08:06→20:24)
[2020-01-13] MEDS: BuPROPion XL (24 HR) 150 MG TABLET PO SCH (08:06)
[2020-01-13] MEDS: Ranolazine 500 MG TAB.ER.12H PO SCH ×2 (08:06→20:24)
[2020-01-13] MEDS: FLUoxetine 20 MG CAPSULE PO SCH (08:06)
[2020-01-13] MEDS: Cyanocobalamin (B-12) 1,000 MCG TABLET PO SCH (08:07)
[2020-01-13] MEDS: 0.9 % Sodium Chloride 1,000 ML IV SCH (08:59)
[2020-01-13] MEDS: Budesonide/Formoterol 80/4.5 1 PUFF INH IH SCH ×2 (09:03→23:23)
[2020-01-13] MEDS: Tiotropium 18 MCG inhalation IH SCH (09:05)
[2020-01-13] MEDS ORDERED: MOM Conc 10 ML UD.LIQ PO ONE (14:27)
[2020-01-13] MEDS ORDERED: Bisacodyl 10 MG RECTAL SUPPOSITORY RC ONE (14:28)
[2020-01-13] MEDS: cefTRIAXone 2,000 MG in Water for inj. (sterile) 20 ML IVPB SCH (15:07)
[2020-01-13] MEDS ORDERED: Isovue-370 500 ML BOTTLE PO ONE (19:07)
[2020-01-13] MEDS: Folic Acid 1 MG TABLET PO SCH (20:24)
[2020-01-13] MEDS: Lactulose Oral Soln 20 GM/30 ML UDC PO SCH (20:24)
[2020-01-13] MEDS: Magnesium Oxide 400 MG TABLET PO SCH (20:24)
[2020-01-13] MEDS: Azithromycin 500 MG in 0.9 % Sodium Chloride 250 ML IVPB SCH (20:24)
[2020-01-13] MEDS: Insulin DETEMIR 100 UNIT/ML X5UNITS SQ SCH (20:25)
[2020-01-14] MEDS: Ondansetron ODT 4 MG TAB.RAPDIS SL SCH ×4 (05:08→23:17)
[2020-01-14] MEDS: Levothyroxine 25 MCG TABLET PO SCH (05:08)
[2020-01-14] MEDS: Insulin LISPRO 300 UNITS/3 ML VIAL SQ SCH ×7 (07:59→20:42)
[2020-01-14] MEDS: Lactulose Oral Soln 20 GM/30 ML UDC PO SCH (08:00)
[2020-01-14] MEDS: Ranolazine 500 MG TAB.ER.12H PO SCH ×2 (08:00→20:41)
[2020-01-14] MEDS: FLUoxetine 20 MG CAPSULE PO SCH (08:01)
[2020-01-14] MEDS: Apixaban 5 MG TABLET PO SCH ×2 (08:02→20:41)
[2020-01-14] MEDS: Cyanocobalamin (B-12) 1,000 MCG TABLET PO SCH (08:02)
[2020-01-14] MEDS: Magnesium Oxide 400 MG TABLET PO SCH ×2 (08:02→20:41)
[2020-01-14] MEDS: Torsemide 20 MG TABLET PO SCH (08:02)
[2020-01-14] MEDS: BuPROPion XL (24 HR) 150 MG TABLET PO SCH (08:03)
[2020-01-14 09:23] LABS: Basophils % 0.3 %; Eosinophils # 0.1 K/mcL (0.0-0.6); Eosinophils % 0.9 %; Hematocrit 37.3 % (37.5-50.1); Hemoglobin 11.4 g/dL (12.9-16.9); Immature Granulocytes % 0.4 % (0-4); Lymphocytes # 1.3 K/mcL (0.6-4.6); Lymphocytes % 11.1 %; Mean Corpuscular HGB Conc 30.6 g/dL (31.6-35.5); Mean Corpuscular Volume 81.8 fL (83.0-100.0); Mean Platelet Volume 9.4 fL (9.4-12.4); Monocytes # 0.8 K/mcL (0.0-1.3); Monocytes % 6.6 %; Neutrophils # 9.5 K/mcL (1.6-8.9); Platelet Count 213 K/mcL (140-400); Red Blood Count 4.56 M/mcL (4.19-5.50); Red Cell Distribution Width 19.4 % (11.5-14.5); Segmented Neutrophils % 80.7 %; White Blood Count 11.8 K/mcL (4.3-11.1)
[2020-01-14 09:36] LABS: BUN/Creatinine Ratio 18 (6-26); Blood Urea Nitrogen 22 mg/dL (8-23); Calcium 8.5 mg/dL (8.6-10.3); Carbon Dioxide 30 mEq/L (23-29); Chloride 101 mEq/L (98-107); Glucose 86 mg/dL (70-105); Osmolality,Calculated 287 (280-300); Potassium 4.2 mEq/L (3.5-5.1); Sodium 137 mEq/L (136-145); eGFR For African Americans > 60 (> 60); eGFR For Non-African Americans 57 (> 60)
[2020-01-14] MEDS: Tiotropium 18 MCG inhalation IH SCH (10:38)
[2020-01-14] MEDS: Budesonide/Formoterol 80/4.5 1 PUFF INH IH SCH ×2 (10:44→21:39)
[2020-01-14] MEDS ORDERED: Lactulose Oral Soln 20 GM/30 ML UDC PO PRN (12:23)
[2020-01-14] MEDS: cefTRIAXone 2,000 MG in Water for inj. (sterile) 20 ML IVPB SCH (16:49)
[2020-01-14] MEDS: Folic Acid 1 MG TABLET PO SCH (20:42)
[2020-01-14] MEDS: Azithromycin 500 MG in 0.9 % Sodium Chloride 250 ML IVPB SCH (20:42)
[2020-01-14] MEDS: Insulin DETEMIR 100 UNIT/ML X5UNITS SQ SCH (20:42)
[2020-01-14 21:44] LABS: Adenovirus Not Detected (Not Detect); Coronavirus 229E Not Detected (Not Detect); Coronavirus HKU1 Not Detected (Not Detect); Coronavirus NL63 Not Detected (Not Detect); Coronavirus OC43 Not Detected (Not Detect); Human Metapneumovirus Not Detected (Not Detect); Human Rhinovirus/Enterovirus Not Detected (Not Detect)
[2020-01-14 21:45] LABS: Bordetella Pertussis Not Detected (Not Detect); Chlamydophila pneumoniae Not Detected (Not Detect); Influenza A Subtype 2009 H1 Not Detected (Not Detect); Influenza B Not Detected (Not Detect); Mycoplasma pneumoniae Not Detected (Not Detect); Parainfluenza Virus 1 Not Detected (Not Detect); Parainfluenza Virus 2 Not Detected (Not Detect); Parainfluenza Virus 3 Not Detected (Not Detect); Parainfluenza Virus 4 Not Detected (Not Detect); Respiratory Syncytial Virus Not Detected (Not Detect)
[2020-01-15] MEDS: Ondansetron ODT 4 MG TAB.RAPDIS SL SCH ×3 (05:05→16:33)
[2020-01-15] MEDS: Levothyroxine 25 MCG TABLET PO SCH (05:05)
[2020-01-15] MEDS: Ranolazine 500 MG TAB.ER.12H PO SCH ×2 (08:06→20:36)
[2020-01-15] MEDS: Magnesium Oxide 400 MG TABLET PO SCH ×2 (08:07→20:36)
[2020-01-15] MEDS: FLUoxetine 20 MG CAPSULE PO SCH (08:07)
[2020-01-15] MEDS: Torsemide 20 MG TABLET PO SCH (08:08)
[2020-01-15] MEDS: BuPROPion XL (24 HR) 150 MG TABLET PO SCH (08:08)
[2020-01-15] MEDS: Insulin LISPRO 300 UNITS/3 ML VIAL SQ SCH ×7 (08:09→20:37)
[2020-01-15] MEDS: Apixaban 5 MG TABLET PO SCH ×2 (08:09→20:36)
[2020-01-15] MEDS: Cyanocobalamin (B-12) 1,000 MCG TABLET PO SCH (08:09)
[2020-01-15] MEDS: Tiotropium 18 MCG inhalation IH SCH (10:21)
[2020-01-15] MEDS: Budesonide/Formoterol 80/4.5 1 PUFF INH IH SCH ×2 (10:22→21:49)
[2020-01-15] MEDS: cefTRIAXone 2,000 MG in Water for inj. (sterile) 20 ML IVPB SCH (16:31)
[2020-01-15] MEDS: Insulin DETEMIR 100 UNIT/ML X5UNITS SQ SCH (20:36)
[2020-01-15] MEDS: Folic Acid 1 MG TABLET PO SCH (20:36)
[2020-01-15] MEDS: Azithromycin 500 MG in 0.9 % Sodium Chloride 250 ML IVPB SCH (20:37)
[2020-01-16] MEDS: Ondansetron ODT 4 MG TAB.RAPDIS SL SCH ×2 (00:31→05:19)
[2020-01-16] MEDS: Levothyroxine 25 MCG TABLET PO SCH (05:19)
[2020-01-16] MEDS: FLUoxetine 20 MG CAPSULE PO SCH (08:21)
[2020-01-16] MEDS: Ranolazine 500 MG TAB.ER.12H PO SCH (08:21)
[2020-01-16] MEDS: Torsemide 20 MG TABLET PO SCH (08:21)
[2020-01-16] MEDS: BuPROPion XL (24 HR) 150 MG TABLET PO SCH (08:21)
[2020-01-16] MEDS: Magnesium Oxide 400 MG TABLET PO SCH (08:22)
[2020-01-16] MEDS: Apixaban 5 MG TABLET PO SCH (08:22)
[2020-01-16] MEDS: Insulin LISPRO 300 UNITS/3 ML VIAL SQ SCH ×2 (08:22→08:23)
[2020-01-16] MEDS: Cyanocobalamin (B-12) 1,000 MCG TABLET PO SCH (08:22)
[2020-01-16] MEDS: Tiotropium 18 MCG inhalation IH SCH (08:24)
[2020-01-16] MEDS: Budesonide/Formoterol 80/4.5 1 PUFF INH IH SCH (08:25)
[2020-01-16 10:05] VITALS: BP 127/64
[2020-01-16] MEDS ORDERED: Insulin DETEMIR 100 UNIT/ML X5UNITS SQ SCH (21:00)
== END 2020-01-16 13:25 | disposition home health service (06) | DRG 193 ==
LOC: INPPIK 12:23 → EMEROOPIK 12:23 → INPPIK 15:44
PROVIDERS: ADMIT Family Medicine; ATTEND Family Medicine

== ENCOUNTER 2020-03-02 08:21 | Inpatient (IN) ==
[2020-03-02] MEDS ORDERED: Ipratropium/Albuterol Neb 3 ML IH ONE (08:34)
[2020-03-02] MEDS ORDERED: methylPREDNISolone 125 MG/2 ML VIAL IVP ONE (08:34)
[2020-03-02 08:59] LABS: Basophils % 0.2 %; Eosinophils # 0.2 K/mcL (0.0-0.6); Eosinophils % 1.7 %; Hematocrit 32.2 % (37.5-50.1); Hemoglobin 10.2 g/dL (12.9-16.9); Immature Granulocytes % 0.4 % (0-4); Lymphocytes # 0.7 K/mcL (0.6-4.6); Lymphocytes % 7.5 %; Mean Corpuscular HGB Conc 31.7 g/dL (31.6-35.5); Mean Corpuscular Hemoglobin 25.9 pg (28.0-33.3); Mean Corpuscular Volume 81.7 fL (83.0-100.0); Mean Platelet Volume 9.2 fL (9.4-12.4); Monocytes # 0.6 K/mcL (0.0-1.3); Monocytes % 7.2 %; Neutrophils # 7.4 K/mcL (1.6-8.9); Platelet Count 206 K/mcL (140-400); Red Blood Count 3.94 M/mcL (4.19-5.50); Red Cell Distribution Width 17.7 % (11.5-14.5); White Blood Count 8.9 K/mcL (4.3-11.1)
[2020-03-02 09:00] LABS: ABG Base Excess 0 mEq/L (-2 to 3); ABG HCO3 26 mEq/L (21-27); ABG Oxygen Saturation 95 % (95-98); ABG PCO2 44 mmHg (35-45); ABG PH 7.37 pH Units (7.32-7.45); ABG PO2 80 mmHg (85-104); ABG TCO2 27 mEq/L (20-26)
[2020-03-02 09:16] LABS: BUN/Creatinine Ratio 18 (6-26); Blood Urea Nitrogen 24 mg/dL (8-23); Calcium 8.6 mg/dL (8.6-10.3); Carbon Dioxide 30 mEq/L (23-29); Chloride 95 mEq/L (98-107); Glucose 249 mg/dL (70-105); Osmolality,Calculated 290 (280-300); Potassium 4.5 mEq/L (3.5-5.1); Sodium 134 mEq/L (136-145); eGFR For African Americans > 60 (> 60); eGFR For Non-African Americans 52 (> 60)
[2020-03-02 10:34] LABS: Bilirubin,Urine Negative (Negative); Blood,Urine Negative (Negative); Clarity,Urine Clear (Clear); Color,Urine Yellow (Yellow); Glucose,Urine (UA) 100 mg/dL (Normal); Ketones,Urine Negative (Negative); Leukocyte Esterase,Urine Negative (Negative); Nitrite,Urine Negative (Negative); Protein,Urine Negative (Neg-Trace); Urobilinogen,Urine Normal (Normal)
[2020-03-02] MEDS ORDERED: Azithromycin 500 MG in 0.9 % Sodium Chloride 250 ML IVPB ONE (11:00)
[2020-03-02] MEDS ORDERED: Ipratropium/Albuterol Neb 3 ML IH PRN (12:19)
[2020-03-02] MEDS ORDERED: Mag Hydrox/Al Hydrox/Simeth 30 ML UDC PO PRN (12:30)
[2020-03-02] MEDS ORDERED: Naloxone 0.4 MG/ML INJ IVP PRN (12:30)
[2020-03-02] MEDS ORDERED: Dextrose Gel 15 GM/37.5 ML TUBE PO PRN ×2 (12:34)
[2020-03-02] MEDS ORDERED: *HR* Dextrose 50 % in Water (Vial) 50 ML VIAL IVP PRN (12:34)
[2020-03-02] MEDS ORDERED: D5% in Water 1,000 ML IVC PRN (12:34)
[2020-03-02] MEDS ORDERED: Ondansetron ODT 4 MG TAB.RAPDIS SL PRN (12:55)
[2020-03-02] MEDS: Azithromycin 500 MG in 0.9 % Sodium Chloride 250 ML IVPB SCH (14:07)
[2020-03-02] MEDS: MethylPREDNISolone 40 MG/ML VIAL IVP SCH (17:05)
[2020-03-02] MEDS: Insulin LISPRO 300 UNITS/3 ML VIAL SQ SCH (17:15)
[2020-03-02] MEDS: Budesonide/Formoterol 80/4.5 1 PUFF INH IH SCH ×2 (20:55→21:12)
[2020-03-02] MEDS ORDERED: Insulin LISPRO 300 UNITS/3 ML VIAL SQ SCH (21:00)
[2020-03-02] MEDS: Magnesium Oxide 400 MG TABLET PO SCH (22:23)
[2020-03-02] MEDS: Ranolazine 500 MG TAB.ER.12H PO SCH (22:23)
[2020-03-02] MEDS: Insulin DETEMIR 100 UNIT/ML X5UNITS SQ SCH (22:24)
[2020-03-02] MEDS: Folic Acid 1 MG TABLET PO SCH (22:24)
[2020-03-02] MEDS: Apixaban 5 MG TABLET PO SCH (22:25)
[2020-03-03 00:11] LABS: Estimated Average Glucose 189 mg/dl
[2020-03-03] MEDS: MethylPREDNISolone 40 MG/ML VIAL IVP SCH ×3 (00:19→16:57)
[2020-03-03 06:30] LABS: Basophils % 0.1 %; Hematocrit 31.8 % (37.5-50.1); Hemoglobin 10.1 g/dL (12.9-16.9); Immature Granulocytes % 0.6 % (0-4); Lymphocytes # 0.5 K/mcL (0.6-4.6); Lymphocytes % 7.6 %; Mean Corpuscular HGB Conc 31.8 g/dL (31.6-35.5); Mean Corpuscular Hemoglobin 25.6 pg (28.0-33.3); Mean Corpuscular Volume 80.5 fL (83.0-100.0); Mean Platelet Volume 8.9 fL (9.4-12.4); Monocytes # 0.2 K/mcL (0.0-1.3); Monocytes % 2.5 %; Platelet Count 197 K/mcL (140-400); Red Blood Count 3.95 M/mcL (4.19-5.50); Red Cell Distribution Width 17.6 % (11.5-14.5); Segmented Neutrophils % 89.2 %; White Blood Count 6.7 K/mcL (4.3-11.1)
[2020-03-03] MEDS: Levothyroxine 25 MCG TABLET PO SCH (06:34)
[2020-03-03 06:50] LABS: BUN/Creatinine Ratio 21 (6-26); Blood Urea Nitrogen 26 mg/dL (8-23); Calcium 8.6 mg/dL (8.6-10.3); Carbon Dioxide 29 mEq/L (23-29); Chloride 96 mEq/L (98-107); Glucose 339 mg/dL (70-105); Osmolality,Calculated 296 (280-300); Potassium 4.1 mEq/L (3.5-5.1); Sodium 134 mEq/L (136-145); eGFR For African Americans > 60 (> 60); eGFR For Non-African Americans 57 (> 60)
[2020-03-03] MEDS: Budesonide/Formoterol 80/4.5 1 PUFF INH IH SCH ×2 (09:23→22:03)
[2020-03-03] MEDS: Cholecalciferol (D-3) 1,000 UNIT (25MCG) TABLET PO SCH (10:07)
[2020-03-03] MEDS: BuPROPion XL (24 HR) 150 MG TABLET PO SCH (10:07)
[2020-03-03] MEDS: Ranolazine 500 MG TAB.ER.12H PO SCH ×2 (10:07→20:47)
[2020-03-03] MEDS: Magnesium Oxide 400 MG TABLET PO SCH ×2 (10:07→20:46)
[2020-03-03] MEDS: Apixaban 5 MG TABLET PO SCH ×2 (10:08→20:50)
[2020-03-03] MEDS: FLUoxetine 20 MG CAPSULE PO SCH (10:08)
[2020-03-03] MEDS: cefTRIAXone 2,000 MG in 0.9 % Sodium Chloride Mini Bag 100 ML IVPB SCH (10:08)
[2020-03-03] MEDS: Insulin LISPRO 300 UNITS/3 ML VIAL SQ SCH ×5 (10:11→20:48)
[2020-03-03] MEDS: Cyanocobalamin (B-12) 1,000 MCG TABLET PO SCH (12:39)
[2020-03-03] MEDS: MOM Conc 10 ML UD.LIQ PO PRN (12:39)
[2020-03-03] MEDS: Azithromycin 500 MG in 0.9 % Sodium Chloride 250 ML IVPB SCH (15:49)
[2020-03-03] MEDS: Folic Acid 1 MG TABLET PO SCH (20:46)
[2020-03-03] MEDS: Insulin DETEMIR 100 UNIT/ML X5UNITS SQ SCH (20:48)
[2020-03-04] MEDS ORDERED: Melatonin 3 MG TABLET PO ONE (02:43)
[2020-03-04] MEDS: MethylPREDNISolone 40 MG/ML VIAL IVP SCH ×2 (05:54→17:21)
[2020-03-04] MEDS: Levothyroxine 25 MCG TABLET PO SCH (05:54)
[2020-03-04 06:49] LABS: Hematocrit 32.4 % (37.5-50.1); Hemoglobin 10.2 g/dL (12.9-16.9); Mean Corpuscular HGB Conc 31.5 g/dL (31.6-35.5); Mean Corpuscular Hemoglobin 25.8 pg (28.0-33.3); Mean Platelet Volume 9.9 fL (9.4-12.4); Platelet Count 227 K/mcL (140-400); Red Blood Count 3.95 M/mcL (4.19-5.50); Red Cell Distribution Width 17.6 % (11.5-14.5); White Blood Count 9.1 K/mcL (4.3-11.1)
[2020-03-04 06:51] LABS: BUN/Creatinine Ratio 28 (6-26); Blood Urea Nitrogen 32 mg/dL (8-23); Carbon Dioxide 29 mEq/L (23-29); Chloride 99 mEq/L (98-107); Glucose 207 mg/dL (70-105); Osmolality,Calculated 293 (280-300); Potassium 4.5 mEq/L (3.5-5.1); Sodium 135 mEq/L (136-145); eGFR For African Americans > 60 (> 60); eGFR For Non-African Americans > 60 (> 60)
[2020-03-04 07:24] LABS: Calcium 8.6 mg/dL (8.6-10.3)
[2020-03-04] MEDS: FLUoxetine 20 MG CAPSULE PO SCH (09:00)
[2020-03-04] MEDS: Cholecalciferol (D-3) 1,000 UNIT (25MCG) TABLET PO SCH (09:00)
[2020-03-04] MEDS: Torsemide 20 MG TABLET PO SCH (09:00)
[2020-03-04] MEDS: BuPROPion XL (24 HR) 150 MG TABLET PO SCH (09:00)
[2020-03-04] MEDS: Insulin LISPRO 300 UNITS/3 ML VIAL SQ SCH ×7 (09:00→22:33)
[2020-03-04] MEDS: Cyanocobalamin (B-12) 1,000 MCG TABLET PO SCH (09:00)
[2020-03-04] MEDS: Apixaban 5 MG TABLET PO SCH ×2 (09:00→20:41)
[2020-03-04] MEDS: Ranolazine 500 MG TAB.ER.12H PO SCH ×2 (09:00→20:41)
[2020-03-04] MEDS: Magnesium Oxide 400 MG TABLET PO SCH ×2 (09:00→20:40)
[2020-03-04] MEDS: Budesonide/Formoterol 80/4.5 1 PUFF INH IH SCH ×2 (10:14→22:08)
[2020-03-04] MEDS: Azithromycin 500 MG in 0.9 % Sodium Chloride 250 ML IVPB SCH (12:38)
[2020-03-04] MEDS: Insulin DETEMIR 100 UNIT/ML X5UNITS SQ SCH ×2 (15:21→20:41)
[2020-03-04] MEDS: cefTRIAXone 2,000 MG in 0.9 % Sodium Chloride Mini Bag 100 ML IVPB SCH (15:23)
[2020-03-04] MEDS: MOM Conc 10 ML UD.LIQ PO PRN (20:40)
[2020-03-04] MEDS: Folic Acid 1 MG TABLET PO SCH (20:41)
[2020-03-05] MEDS: Levothyroxine 25 MCG TABLET PO SCH (05:25)
[2020-03-05] MEDS: MethylPREDNISolone 40 MG/ML VIAL IVP SCH (05:25)
[2020-03-05 06:25] VITALS: BP 156/78
[2020-03-05 07:11] LABS: Hematocrit 35.4 % (37.5-50.1); Hemoglobin 11.2 g/dL (12.9-16.9); Mean Corpuscular HGB Conc 31.6 g/dL (31.6-35.5); Mean Corpuscular Volume 82.3 fL (83.0-100.0); Mean Platelet Volume 9.3 fL (9.4-12.4); Platelet Count 254 K/mcL (140-400); Red Cell Distribution Width 17.5 % (11.5-14.5); White Blood Count 9.7 K/mcL (4.3-11.1)
[2020-03-05 07:25] LABS: BUN/Creatinine Ratio 24 (6-26); Blood Urea Nitrogen 27 mg/dL (8-23); Calcium 8.6 mg/dL (8.6-10.3); Carbon Dioxide 33 mEq/L (23-29); Chloride 98 mEq/L (98-107); Glucose 241 mg/dL (70-105); Osmolality,Calculated 299 (280-300); Potassium 4.2 mEq/L (3.5-5.1); Sodium 138 mEq/L (136-145); eGFR For African Americans > 60 (> 60); eGFR For Non-African Americans > 60 (> 60)
[2020-03-05] MEDS: cefTRIAXone 2,000 MG in 0.9 % Sodium Chloride Mini Bag 100 ML IVPB SCH (09:06)
[2020-03-05] MEDS: Torsemide 20 MG TABLET PO SCH (09:07)
[2020-03-05] MEDS: Apixaban 5 MG TABLET PO SCH (09:08)
[2020-03-05] MEDS: Ranolazine 500 MG TAB.ER.12H PO SCH (09:08)
[2020-03-05] MEDS: Cyanocobalamin (B-12) 1,000 MCG TABLET PO SCH (09:08)
[2020-03-05] MEDS: BuPROPion XL (24 HR) 150 MG TABLET PO SCH (09:08)
[2020-03-05] MEDS: Magnesium Oxide 400 MG TABLET PO SCH (09:08)
[2020-03-05] MEDS: FLUoxetine 20 MG CAPSULE PO SCH (09:08)
[2020-03-05] MEDS: Cholecalciferol (D-3) 1,000 UNIT (25MCG) TABLET PO SCH (09:08)
[2020-03-05] MEDS: Insulin LISPRO 300 UNITS/3 ML VIAL SQ SCH ×4 (09:09→11:39)
[2020-03-05] MEDS: Insulin DETEMIR 100 UNIT/ML X5UNITS SQ SCH (09:11)
[2020-03-05] MEDS: Budesonide/Formoterol 80/4.5 1 PUFF INH IH SCH (09:50)
== END 2020-03-05 12:00 | disposition home health service (06) | DRG 193 ==
LOC: INPPIK 08:21 → EMEROOPIK 08:21 → INPPIK 12:03
PROVIDERS: ADMIT Family Medicine; ATTEND Family Medicine